=== PATIENT | female | born 1950 | race Caucasian/White ===

== ENCOUNTER 2018-08-16 05:29 | Day surgery (SDC) | payer OTHER ==
[~2018-08-16] VITALS: Ht 167.6 cm; Wt 91.6 kg
--- NOTE | ~2018-08-16 | O ---
[facility] [place] [address] OPERATIVE REPORT Name: KATIE ASHTON Room #: 150-7 [facility]#: [id number] Admission: 08/16/18 Attend Phys: Rob Jewell MD Discharge: Date of : 50 Report #: [id number] THIS REPORT FOR: //name// CC: Lio Joshua Jewell DATE OF SERVICE: 08/16/2018 SURGEON: Rob Jewell MD [employer] M[employer]: None. PREOPERATIVE DIAGNOSIS: Bilateral upper lid dermatochalasia with superior visual field defect. POSTOPERATIVE DIAGNOSIS: Bilateral upper lid dermatochalasia with superior visual field defect. OPERATION PERFORMED: Bilateral upper lid functional blepharoplasty. ANESTHESIA: Local with IV sedation. COMPLICATIONS: None. INDICATIONS FOR SURGERY: This patient has acquired upper lid dermatochalasia with superior visual field loss both eyes because of excessive upper lid tissues to include skin and fat. Visual field testing demonstrates dense superior visual defects. Retesting with the upper lid elevated shows an improvement in visual field loss of over 30% and in excess of 12 degrees. The current procedures are undertaken in order to improve the patient's visual function. Informed consent was obtained to include but not limited to the loss of vision, bleeding, infection, scarring, failure to improve the problem and need for further surgery. DESCRIPTION OF OPERATION: The patient was taken to the operating room, where 2% Xylocaine with epinephrine mixed with equal parts of 0.75% Marcaine with Wydase was administered transcutaneously to each upper lid. The patient was then prepped and draped in the usual sterile fashion and a skin-marking pen was then utilized to outline an upper lid crease that was symmetrical on each side. Graefe forceps were then used to quantitate the redundant upper lid skin and it was similarly outlined. The incisions were then made with Tessa scissors and a skin-muscle flap removed from each side with high-temp cautery. Hemostasis was achieved with the monopolar cautery as it was throughout the case. The [address] [address] OPERATIVE REPORT Name: POLIKATIE L Room #: 150-7 [facility]..#: [id number] Admission: 08/16/18 Attend Phys: Rob Jewell MD Discharge: Date of : 50 Report #: [id number] orbital septum was then identified and the central and medial fat pads were inspected. The redundant soft tissue was then sculpted with the monopolar cautery. The upper lid crease was then reformed with tightening of the pretarsal orbicularis muscle. The upper lid crease was then further reformed with multiple interrupted 6-0 chromic sutures. The skin was then closed with a running 6-0 plain gut suture. The wound was then cleaned and dressed with ophthalmic antibiotic ointment and a nonstick dressing. The patient was transported to the recovery area, where cold compresses were applied, having tolerated the procedure well with no anesthetic or operative complications being noted. By: [id number] Rob Jewell MD /nt
[~2018-08-16 05:29] MED LIST: 8 HOUR C500 MG PO; AMLODIPINE-BEN1 EAC3 PO; ASPIRIN81 M2 PO; ATORVASTATIN CA40 MG PO; CALCIUM CARBON600 MG PO; CLONAZEPAM0.25 MG PO; FISH OIL 1,4001 EACH PO; FLUTICASONE PRO16 GM NASAL; GLUCOPHAGE XR500 MG PO; MELATONIN10 M2 PO; MIRALAX119 GM PO; MULTIVITAMINS1 EAC7 PO; OMEPRAZOLE 20 M20 M1 PO; RECLAST 55 MG/100 M IV; VITAMIN D2000 UNIT PO
[2018-08-16 10:58] VITALS: BP 123/68
== END 2018-08-16 09:05 | disposition home or self-care (01) ==
LOC: OR 05:29 → TBA 05:29 → OR 08:43
DX: H02.834 Dermatochalasis of left upper eyelid (principal); H02.831 Dermatochalasis of right upper eyelid; H53.40 Unspecified visual field defects; I10 Essential (primary) hypertension; E78.5 Hyperlipidemia, unspecified; K21.9 Gastro-esophageal reflux disease without esophagitis; E11.9 Type 2 diabetes mellitus without complications; G47.30 Sleep apnea, unspecified; Z79.82 Long term (current) use of aspirin; Z79.899 Other long term (current) drug therapy; Z90.89 Acquired absence of other organs; Z98.51 Tubal ligation status; Z90.710 Acquired absence of both cervix and uterus; Z90.49 Acquired absence of other specified parts of digestive tract; Z98.890 Other specified postprocedural states; Z98.42 Cataract extraction status, left eye; Z98.41 Cataract extraction status, right eye
CPT/HCPCS: 50010; 50101; 62110; 62850; 70005